=== PATIENT | female | born 2000 | race American Indian/Alaskan Native ===

== ENCOUNTER 2020-03-07 19:24 | Emergency (ER) | payer SELFPAY ==
[2020-03-07 20:15] VITALS: BP 128/75
--- NOTE | 2020-03-07 22:18 | Event Note ---
ED Screening Note ED Screening Note: pelvic pain x4 days no dysuria nausea no discharge LNMP: 2 weeks ago implanted control no itching, odor, burning PMHx none hasnt seen [employer] This initial assessment/diagnostic orders/clinical plan/treatment(s) is/are subject to change based on patients health status, clinical progression and re-assessment by fellow clinical providers in the ED. Further treatment and workup at subsequent clinical providers discretion. Patient/guardian urged not to elope from the ED as their condition may be serious if not clinically assessed and managed. Initial orders include: ua, urine preg, US
[2020-03-07 23:18] LABS: Bilirubin,Urine NEG (Negative); Blood,Urine LG (Negative); Color,Urine Yellow (Yellow); Mucus,Urine FEW /HPF; Urobilinogen,Urine < 2.0 mg/dL (<2.0)
[2020-03-07 23:19] LABS: RBC,Urine > 182.0 /HPF (0.0-6.0); WBC,Urine > 182.0 /HPF (0.0-6.0)
[2020-03-07 23:20] LABS: HCG Qualitative,Urine Negative (Negative)
[2020-03-08] MEDS ORDERED: AZITHROMYCIN 250 MG TAB PO ONE (02:15)
[2020-03-08] MEDS ORDERED: LIDOCAINE-MPF (1%) 10 MG/1 ML VIAL 5 ML INFILTRATI ONE (02:15)
--- NOTE | 2020-03-08 03:03 | Ultrasound Report ---
ULTRASOUND PELVIS INDICATION / CLINICAL INFORMATION: Pelvic pain. TECHNIQUE: Transabdominal. Duplex Color Doppler used: Yes. COMPARISON: None available FINDINGS: UTERUS: Present. - Appearance (if present): No significant abnormality. - Size in cm (if present): 5.8 x 2.5 x 4.3. - Endometrial Complex (if present): No significant abnormality.. Thickness in cm (if measured) = 0.23 - Mass lesions: None. - Additional findings: None. RIGHT ADNEXA: No significant ovarian cyst or mass. Normal color Doppler blood flow. LEFT ADNEXA: No significant ovarian cyst or mass. Normal color Doppler blood flow. URINARY BLADDER: No significant abnormality. FREE FLUID: None. ADDITIONAL FINDINGS: None. IMPRESSION: 1. No significant abnormality. Signer Name: Joshua Ziegler MD Signed: 03/08/2020 2:58 AM Workstation Name: [id number]
--- NOTE | 2020-03-08 03:10 | Emergency Department Report ---
ED Female HPI - General Chief complaint: Abdominal Pain Stated complaint: ABDOMINAL PAIN Time Seen by Provider: 03/07/20 22:16 Source: patient Mode of arrival: Ambulatory Limitations: No Limitations - History of Present Illness Initial comments: Patient is a 19-year-old female presents emergency room with complaints of pelvic pain that began 4 days ago. She has associated nausea. She denies any dysuria, urinary frequency, dark urine, vaginal discharge, vaginal itching, odor, burning, lesions, blisters, vomiting, diarrhea, fever, back pain. She states that her LNMP: 2 weeks ago, she states she has implanted control. PMHx none. hasnt seen [employer]. She states that she was sexually active without protection approximately 2 weeks ago. - Related Data Previous Rx's Medication Instructions Recorded Last Taken Type cephALEXin [Keflex] 500 mg PO BID 7 Days #14 cap 03/08/20 Unknown Rx metroNIDAZOLE [Flagyl] 500 mg PO BID 7 Days #14 tab 03/08/20 Unknown Rx Allergies Allergy/AdvReac Type Severity Reaction Status Date / Time No Known Allergies Allergy Unverified 04/28/14 09:27 ED Review of Systems ROS: Stated complaint: ABDOMINAL PAIN Other details as noted in HPI Comment: All other systems reviewed and negative ED Past Medical Hx - Social History Smoking Status: Never Smoker Substance Use Type: None - Medications Home Medications: Home Medications Medication Instructions Recorded Confirmed Last Taken Type cephALEXin [Keflex] 500 mg PO BID 7 Days #14 cap 03/08/20 Unknown Rx metroNIDAZOLE [Flagyl] 500 mg PO BID 7 Days #14 tab 03/08/20 Unknown Rx ED Physical Exam - General Limitations: No Limitations General appearance: alert, in no apparent distress - Head Head exam: Present: atraumatic, normocephalic - Eye Eye exam: Present: normal appearance - ENT ENT exam: Present: mucous membranes moist - Respiratory Respiratory exam: Present: normal lung sounds bilaterally. Absent: respiratory distress, wheezes, rales, rhonchi, stridor, chest wall tenderness, accessory muscle use, decreased breath sounds, prolonged expiratory - Cardiovascular Cardiovascular Exam: Present: regular rate, normal rhythm, normal heart sounds. Absent: systolic murmur, diastolic murmur, rubs, gallop - GI/Abdominal GI/Abdominal exam: Present: soft, normal bowel sounds. Absent: distended, tenderness, guarding, rebound, rigid - External exam: Present: other (pt deferred) - Neurological Exam Neurological exam: Present: alert, oriented X3 - Psychiatric Psychiatric exam: Present: normal affect, normal mood - Skin Skin exam: Present: warm, dry, intact ED Course Vital Signs 03/07/20 20:12 Temperature 98.2 F Pulse Rate 92 H Respiratory 17 Rate Blood Pressure 128/75 O2 Sat by Pulse 100 Oximetry ED Medical Decision Making - Lab Data Lab Results 03/07/20 Range/Units Unknown Urine Color Yellow (Yellow) Urine Turbidity Cloudy (Clear) Urine pH 5.0 (5.0-7.0) Ur Specific Onset 1.016 (1.003-1.030) Urine Protein 100 mg/dl (Negative) mg/dL Urine Glucose (UA) Neg (Negative) mg/dL Urine Ketones Tr (Negative) mg/dL Urine Blood Lg (Negative) Urine Nitrite Pos (Negative) Urine Bilirubin Neg (Negative) Urine Urobilinogen < 2.0 (<2.0) mg/dL Ur Leukocyte Esterase Mod (Negative) Urine WBC (Auto) > 182.0 H (0.0-6.0) /HPF Urine RBC (Auto) > 182.0 (0.0-6.0) /HPF U Epithel Cells (Auto) 37.0 H (0-13.0) /HPF Urine Mucus Few /HPF Urine HCG, Qual Negative (Negative) - Radiology Data Radiology results: report reviewed ULTRASOUND PELVIS INDICATION / CLINICAL INFORMATION: Pelvic pain. TECHNIQUE: Transabdominal. Duplex Color Doppler used: Yes. COMPARISON: None available FINDINGS: UTERUS: Present. - Appearance (if present): No significant abnormality. - Size in cm (if present): 5.8 x 2.5 x 4.3. - Endometrial Complex (if present): No significant abnormality.. Thickness in cm (if measured) = 0.23 - Mass lesions: None. - Additional findings: None. RIGHT ADNEXA: No significant ovarian cyst or mass. Normal color Doppler blood flow. LEFT ADNEXA: No significant ovarian cyst or mass. Normal color Doppler blood flow. URINARY BLADDER: No significant abnormality. FREE FLUID: None. ADDITIONAL FINDINGS: None. IMPRESSION: 1. No significant abnormality. Signer Name: Joshua Ziegler MD Signed: 03/08/2020 2:58 AM Workstation Name: [id number] Transcribed By: EMILY Dictated By: Joshua Ziegler MD Electronically Authenticated By: Joshua Ziegler MD Signed Date/Time: 03/08/20257 DD/ 7 TD/TT: - Medical Decision Making Patient is a 19-year-old female presents emergency room with complaints of pelvic pain that began 4 days ago. She has associated nausea. She denies any dysuria, urinary frequency, dark urine, vaginal discharge, vaginal itching, odor, burning, lesions, blisters, vomiting, diarrhea, fever, back pain. She states that her LNMP: 2 weeks ago, she states she has implanted control. PMHx none. hasnt seen [employer]. She states that she was sexually active without protection approximately 2 weeks ago. Vitals are normal. No abdominal tenderness on exam, no guarding, no area, no rigidity, normal bowel sounds, no peritoneal signs. UA shows evidence of significant UTI with many red blood cells, many white blood cells, leukocyte esterase, nitrites. pelvic US: 1. No significant abnormality. Given that patient has significant UTI and has had recent unprotected sexual intercourse, patient will be covered for STDs. Patient given ceftriaxone and azithromycin while in the emergency department. Patient given prescription for Keflex and Flagyl. Advised patient to please take medication as prescribed to completion. Increase your water intake. Do not drink alcohol while taking medication. Please go to the health department or [facility] for full STD panel. Please have any partner tested and treated as well. Avoid sexual intercourse for 10 days. Return to emergency room for any new or worsening symptoms. - Differential Diagnosis UTI, STD, vaginitis, PID, TOA, ovarian cyst, fibroids, endometriosis Critical care attestation.: If time is entered above; I have spent that time in minutes in the direct care of this critically ill patient, excluding procedure time. ED Disposition Clinical Impression: Pelvic pain, History of unprotected sex UTI (urinary tract infection) Qualifiers: Urinary tract infection type: acute cystitis Hematuria presence: with hematuria Qualified Code(s): N30.01 - Acute cystitis with hematuria Disposition: TO HOME OR SELFCARE Is pt being admited?: No Does the pt Need Aspirin: No Condition: Stable Instructions: Abdominal Pain (ED), Urinary Tract Infection, Adult, [id number], Safe Sex Additional Instructions: please take medication as prescribed to completion. Increase your water intake. Do not drink alcohol while taking medication. Please go to the health department or [facility] for full STD panel. Please have any partner tested and treated as well. Avoid sexual intercourse for 10 days. Return to emergency room for any new or worsening symptoms. Prescriptions: metroNIDAZOLE [Flagyl] 500 mg PO BID 7 Days #14 tab cephALEXin [Keflex] 500 mg PO BID 7 Days #14 cap Referrals: [facility] [Outside] - 2-3 Days [facility] [Provider Group] - 2-3 Days [facility] [Provider Group] - 2-3 Days [facility], [LAB/CONTRACT] - 2-3 Days YOEL GILLIS MD [Staff Physician] - 2-3 Days Time of Disposition: 03:10 Print Language: SPANISH
== END 2020-03-08 04:05 | disposition home or self-care (01) ==
LOC: ED 19:24
DX: N39.0 Urinary tract infection, site not specified (principal)
CPT/HCPCS: 76856; 81001; 81025; 96372; 99284; J0696

== ENCOUNTER 2021-02-18 10:54 | Emergency (ER) | payer SELFPAY ==
[2021-02-18 11:04] VITALS: BP 127/77
[2021-02-18] MEDS ORDERED: dexAMETHasone 20 MG/5 ML VIAL IM ONE (11:23)
--- NOTE | 2021-02-18 12:22 | Emergency Department Report ---
ED ENT HPI - General Chief complaint: Sore Throat Stated complaint: THROAT FEELS TIGHT Time Seen by Provider: 02/18/21 11:03 Source: patient Mode of arrival: Ambulatory Limitations: No Limitations - History of Present Illness Initial comments: Patient is a 20-year-old female presents emergency room with complaints of a sore throat that began last night. She states that she feels discomfort with swallowing on the right side she denies anything getting stuck in the throat or any choking episodes. She denies any eating any chicken bones or fish bones. Patient denies any fever, vomiting, cough, shortness of breath. No past medical history. No allergies to medications. - Related Data Previous Rx's Medication Instructions Recorded Last Taken Type cephALEXin [Keflex] 500 mg PO BID 7 Days #14 cap 03/08/20 Unknown Rx metroNIDAZOLE [Flagyl] 500 mg PO BID 7 Days #14 tab 03/08/20 Unknown Rx Naproxen 375 mg PO BID PRN #14 tablet 02/18/21 Unknown Rx Nystas/Diphen/Xyl Visc/Mylanta 30 ml MM Q4H PRN #300 ml 02/18/21 Unknown Rx [Magic Mouthwash] Prednisone [predniSONE 10 mg 10 mg PO .TAPER #1 tab.ds.pk 02/18/21 Unknown Rx (6-Day Pack, 21 Tabs)] Allergies Allergy/AdvReac Type Severity Reaction Status Date / Time AVINASH SLIVER Allergy Rash Uncoded 02/18/21 10:58 ED Dental HPI - General Chief complaint: Sore Throat Stated complaint: THROAT FEELS TIGHT Time Seen by Provider: 02/18/21 11:03 Source: patient Mode of arrival: Ambulatory Limitations: No Limitations - Related Data Previous Rx's Medication Instructions Recorded Last Taken Type cephALEXin [Keflex] 500 mg PO BID 7 Days #14 cap 03/08/20 Unknown Rx metroNIDAZOLE [Flagyl] 500 mg PO BID 7 Days #14 tab 03/08/20 Unknown Rx Naproxen 375 mg PO BID PRN #14 tablet 02/18/21 Unknown Rx Nystas/Diphen/Xyl Visc/Mylanta 30 ml MM Q4H PRN #300 ml 02/18/21 Unknown Rx [Magic Mouthwash] Prednisone [predniSONE 10 mg 10 mg PO .TAPER #1 tab.ds.pk 02/18/21 Unknown Rx (6-Day Pack, 21 Tabs)] Allergies Allergy/AdvReac Type Severity Reaction Status Date / Time AVINASH SLIVER Allergy Rash Uncoded 02/18/21 10:58 ED Review of Systems ROS: Stated complaint: THROAT FEELS TIGHT Other details as noted in HPI Comment: All other systems reviewed and negative ED Past Medical Hx - Past Medical History Previous Medical History?: No - Surgical History Past Surgical History?: No - Social History Smoking Status: Never Smoker Substance Use Type: None - Medications Home Medications: Home Medications Medication Instructions Recorded Confirmed Last Taken Type cephALEXin [Keflex] 500 mg PO BID 7 Days #14 cap 03/08/20 Unknown Rx metroNIDAZOLE [Flagyl] 500 mg PO BID 7 Days #14 tab 03/08/20 Unknown Rx Naproxen 375 mg PO BID PRN #14 tablet 02/18/21 Unknown Rx Nystas/Diphen/Xyl Visc/Mylanta 30 ml MM Q4H PRN #300 ml 02/18/21 Unknown Rx [Magic Mouthwash] Prednisone [predniSONE 10 mg 10 mg PO .TAPER #1 tab.ds.pk 02/18/21 Unknown Rx (6-Day Pack, 21 Tabs)] ED Physical Exam - General Limitations: No Limitations General appearance: alert, in no apparent distress - Head Head exam: Present: atraumatic, normocephalic - Eye Eye exam: Present: normal appearance - ENT ENT exam: Present: mucous membranes moist, TM's normal bilaterally, normal external ear exam, other (bilateral tonsillar hypertrophy, no exudates, no erythema, uvula is midline, no uvular edema or deviation, no trismus, no tongue elevation, no muffled voice, no submandibular edema) - Respiratory Respiratory exam: Present: normal lung sounds bilaterally. Absent: respiratory distress, wheezes, rales, rhonchi, stridor, chest wall tenderness, accessory muscle use, decreased breath sounds, prolonged expiratory - Cardiovascular Cardiovascular Exam: Present: regular rate, normal rhythm, normal heart sounds. Absent: systolic murmur, diastolic murmur, rubs, gallop - Neurological Exam Neurological exam: Present: alert, oriented X3 - Psychiatric Psychiatric exam: Present: normal affect, normal mood - Skin Skin exam: Present: warm, dry, intact ED Course Vital Signs 02/18/21 11:03 Temperature 98.2 F Pulse Rate 82 Respiratory 18 Rate Blood Pressure 127/77 [Right] O2 Sat by Pulse 100 Oximetry ED Medical Decision Making - Medical Decision Making Patient is a 20-year-old female presents emergency room with complaints of a sore throat that began last night. She states that she feels discomfort with swallowing on the right side she denies anything getting stuck in the throat or any choking episodes. She denies any eating any chicken bones or fish bones. Patient denies any fever, vomiting, cough, shortness of breath. No past medical history. No allergies to medications. Vitals are normal. On exam:bilateral tonsillar hypertrophy, no exudates, no erythema, uvula is midline, no uvular edema or deviation, no trismus, no tongue elevation, no muffled voice, no submandibular edema. No signs of peritonsillar abscess, uvula is midline without deviation. Do not suspect retropharyngeal abscess, she is tolerating p.o. intake, no muffled voice or hot potato voice. Rapid strep is negative. She has no exudates or erythema. Patient given dexamethasone IM for tonsillar hypertrophy. Patient will be referred to primary care and ENT. Advised patient Please take medication as prescribed. Increase your water intake. Gargle with warm salt water. Follow-up with a primary care doctor. Follow-up with search advertising strategist. Return to emergency room for any new or worsening symptoms. Critical care attestation.: If time is entered above; I have spent that time in minutes in the direct care of this critically ill patient, excluding procedure time. ED Disposition Clinical Impression: Tonsillitis Disposition: 01 HOME / SELF CARE / HOMELESS Is pt being admited?: No Does the pt Need Aspirin: No Condition: Stable Instructions: Tonsillitis, [id number] Additional Instructions: Please take medication as prescribed. Increase your water intake. Gargle with warm salt water. Follow-up with a primary care doctor. Follow-up with search advertising strategist. Return to emergency room for any new or worsening symptoms. Prescriptions: Nystas/Diphen/Xyl Visc/Mylanta [Magic Mouthwash] 30 ml MM Q4H PRN #300 ml PRN Reason: sore throat Naproxen 375 mg PO BID PRN #14 tablet PRN Reason: pain Prednisone [predniSONE 10 mg (6-Day Pack, 21 Tabs)] 10 mg PO .TAPER #1 tab.ds.pk Referrals: PRIMARY CARE, [Primary Care Provider] - 3-5 Days SHEREE FOWLER MD [Staff Physician] - 3-5 Days HERMELINDA TRONCOSO MD [Referring] - 3-5 Days Time of Disposition: 12:20 Print Language: OCCITAN
== END 2021-02-18 13:19 | disposition home or self-care (01) ==
LOC: ED 10:54
DX: J03.90 Acute tonsillitis, unspecified (principal); Z79.899 Other long term (current) drug therapy
CPT/HCPCS: 87116; 87430; 99283; J1100

== ENCOUNTER 2021-03-19 15:16 | Emergency (ER) | payer SELFPAY ==
[2021-03-19] MEDS ORDERED: dexAMETHasone 20 MG/5 ML VIAL IM ONE (16:57)
--- NOTE | 2021-03-19 16:57 | Emergency Department Report ---
ED ENT HPI - General Chief complaint: Sore Throat Stated complaint: SORE THROAT Time Seen by Provider: 03/19/21 16:28 Source: patient Mode of arrival: Ambulatory Limitations: No Limitations - History of Present Illness Initial comments: 20-year-old female presents to the ER today with complaints of sore throat. Patient states that she was here about 3 weeks ago with similar symptoms. She states that she was diagnosed with tonsillitis, and she took all the medication she was prescribed and did get better, but last night she started having swelling sensation in her throat again and discomfort with swallowing. She was given referral to ENT but states that she has not followed up. She states that feels like her throat is tight. She denies any drooling, difficulty breathing, trismus, fever, chills, URI symptoms or cough. MD complaint: sore throat -: Last night - Related Data Previous Rx's Medication Instructions Recorded Last Taken Type dexAMETHasone [Decadron] 4 mg PO Q12H #10 tablet 03/19/21 Unknown Rx Allergies Allergy/AdvReac Type Severity Reaction Status Date / Time AVINASH SLIVER Allergy Rash Uncoded 03/19/21 15:44 ED Dental HPI - General Chief complaint: Sore Throat Stated complaint: SORE THROAT Time Seen by Provider: 03/19/21 16:28 Source: patient Mode of arrival: Ambulatory Limitations: No Limitations - Related Data Previous Rx's Medication Instructions Recorded Last Taken Type dexAMETHasone [Decadron] 4 mg PO Q12H #10 tablet 03/19/21 Unknown Rx Allergies Allergy/AdvReac Type Severity Reaction Status Date / Time AVINASH SLIVER Allergy Rash Uncoded 03/19/21 15:44 ED Review of Systems ROS: Stated complaint: SORE THROAT Other details as noted in HPI Comment: All other systems reviewed and negative Constitutional: denies: chills, fever Eyes: denies: eye pain, eye discharge, vision change ENT: throat pain. denies: dental pain, hearing loss, epistaxis, congestion Respiratory: denies: cough, shortness of breath, SOB with exertion, SOB at rest, wheezing Cardiovascular: denies: chest pain, palpitations, dyspnea on exertion, edema, syncope, paroxysmal nocturnal dyspnea Endocrine: no symptoms reported Gastrointestinal: denies: abdominal pain, nausea, diarrhea, constipation, hematemesis Genitourinary: denies: urgency, dysuria, frequency, hematuria, discharge, abnormal menses, dyspareunia Musculoskeletal: denies: back pain, joint swelling, arthralgia Skin: denies: rash, lesions, change in color, change in hair/nails, pruritus Neurological: denies: headache, weakness, paresthesias, confusion, abnormal gait, vertigo Psychiatric: denies: anxiety, depression, auditory hallucinations, visual hallucinations, homicidal thoughts, suicidal thoughts Hematological/Lymphatic: denies: easy bleeding, easy bruising ED Past Medical Hx - Social History Smoking Status: Never Smoker Substance Use Type: None - Medications Home Medications: Home Medications Medication Instructions Recorded Confirmed Last Taken Type dexAMETHasone [Decadron] 4 mg PO Q12H #10 tablet 03/19/21 Unknown Rx ED Physical Exam - General Limitations: No Limitations General appearance: alert, in no apparent distress - Head Head exam: Present: atraumatic, normocephalic, normal inspection - Eye Eye exam: Present: normal appearance, PERRL, EOMI Pupils: Present: normal accommodation - ENT ENT exam: Present: normal exam, mucous membranes moist, TM's normal bilaterally - Expanded ENT Exam Expanded Throat exam: Positive: tonsillar erythema, tonsillomegaly. Negative: tonsillar exudate, R peritonsillar mass, L peritonsillar mass - Neck Neck exam: Present: normal inspection, full ROM, lymphadenopathy (mild anterior cervical without cellulitis or ttp ). Absent: tenderness - Respiratory Respiratory exam: Present: normal lung sounds bilaterally. Absent: respiratory distress, wheezes, rales, rhonchi, stridor - Cardiovascular Cardiovascular Exam: Present: regular rate, normal rhythm, normal heart sounds - Neurological Exam Neurological exam: Present: alert, oriented X3, CN II-XII intact, normal gait - Psychiatric Psychiatric exam: Present: normal affect, normal mood - Skin Skin exam: Present: intact ED Course Vital Signs 03/19/21 15:16 Temperature 98.2 F Pulse Rate 62 Respiratory 14 Rate Blood Pressure 129/73 [Right] O2 Sat by Pulse 100 Oximetry ED Medical Decision Making - Medical Decision Making Rapid strep and mono negative Patient does have swollen tonsils, with some mild erythema to them, but no exudates and they are equally swollen without any uvular deviation or any signs of peritonsillar abscess. No evidence of Lennox angina. Patient is tolerating secretions well. She has no stridor. She has no trismus. Airway appears to be intact. She is not toxic or ill-appearing. Discussed results with patient. Informed patient that since this is his second bout of tonsillitis she will need to follow-up with ENT for further evaluation. Should be given medications to help her symptoms. No indication for any antibiotics at this time. Patient expressed understanding for instructions and agree with plan. Patient stable at time of discharge. Critical care attestation.: If time is entered above; I have spent that time in minutes in the direct care of this critically ill patient, excluding procedure time. ED Disposition Clinical Impression: Tonsillitis Disposition: HOME / SELF CARE / HOMELESS Is pt being admited?: No Does the pt Need Aspirin: No Condition: Stable Instructions: Tonsillitis, [id number] Additional Instructions: Take the Decadron as prescribed, starting tomorrow. Take motrin as prescribed for any pain. It is important that you follow-up with the ENT especially if this becomes a recurrent issue for you. ENT will be listed on your discharge instructions for follow-up. Return to the ER if your symptoms changes or worsens in any way. Prescriptions: dexAMETHasone [Decadron] 4 mg PO Q12H #10 tablet Referrals: SHEREE FOWLER MD [Staff Physician] - 3-5 Days Forms: Work/School Release Form(ED) Time of Disposition: 18:29
[2021-03-19 18:45] VITALS: BP 115/70
== END 2021-03-19 18:45 | disposition home or self-care (01) ==
LOC: ED 15:16
DX: J03.90 Acute tonsillitis, unspecified (principal)
CPT/HCPCS: 36415; 86308; 87116; 87430; 96372; 99283; J1100